=== PATIENT | male | born 1970 | race Caucasian/White ===

== ENCOUNTER 2025-01-25 06:23 | Day surgery (SDC) | payer BC, SELFPAY | END 2025-01-25 08:41 | disposition home or self-care (01) | LOC: GI 06:23 | PROVIDERS: ATTENDING PHYSICIAN Specialist | DX: K51.50 Left sided colitis without complications (principal); K63.5 Polyp of colon; K62.89 Other specified diseases of anus and rectum | CPT/HCPCS: 45385; 45380; 88305 ==